=== PATIENT | female | born 1995 | race African-American/Black ===

== ENCOUNTER 2024-02-28 03:31 | Emergency (ER) | payer OTHER ==
[~2024-02-28] VITALS: Ht 170.2 cm; Wt 86.2 kg
[2024-02-28] MEDS ORDERED: CEPH500T PO (04:45)
[2024-02-28] MEDS ORDERED: IBUP-1953 PO (04:45)
[2024-02-28] MEDS ORDERED: ACETAMINOPHEN ES 500 MG TABLET ONE (05:01)
[2024-02-28] MEDS ORDERED: IBUPROFEN 600 MG TABLET ONE (05:01)
[2024-02-28] MEDS: ACETAMINOPHEN ES 500 MG TABLET PO ONE (05:02)
[2024-02-28] MEDS: IBUPROFEN 600 MG TABLET PO ONE (05:02)
[2024-02-28 05:09] VITALS: BP 116/66; TEMP 97.8; O2SAT 100
== END 2024-02-28 05:09 | disposition home or self-care (01) ==
LOC: ER 03:53
DX: L03.116 Cellulitis of left lower limb (principal); L03.115 Cellulitis of right lower limb; F20.9 Schizophrenia, unspecified; I10 Essential (primary) hypertension; R60.0 Localized edema; Z59.00 Homelessness unspecified

== ENCOUNTER 2024-04-05 00:06 | Emergency (ER) | payer OTHER ==
[~2024-04-05] VITALS: Ht 177.8 cm; Wt 76.2 kg
[~2024-04-05 00:06] MED LIST: CEPH500T PO; IBUP-1953 PO
[2024-04-05] MEDS ORDERED: IBUPROFEN 400 MG TABLET ONE (01:17)
[2024-04-05] MEDS ORDERED: ACETAMINOPHEN ES 500 MG TABLET ONE (01:17)
[2024-04-05] MEDS: IBUPROFEN 400 MG TABLET PO ONE (01:21)
[2024-04-05] MEDS: ACETAMINOPHEN ES 500 MG TABLET PO ONE (01:21)
[2024-04-05] MEDS ORDERED: KETO10TA2 PO (03:23)
[2024-04-05 05:02] VITALS: BP 130/77; TEMP 98.6; O2SAT 96
== END 2024-04-05 05:03 | disposition home or self-care (01) ==
LOC: ER 00:11
DX: M79.672 Pain in left foot (principal); M79.671 Pain in right foot; M79.89 Other specified soft tissue disorders; I10 Essential (primary) hypertension; F20.9 Schizophrenia, unspecified; Z59.00 Homelessness unspecified
CPT/HCPCS: 73630-TC